=== PATIENT | male | born 1995 | race Caucasian/White ===

== ENCOUNTER 2019-06-15 11:56 | Emergency (ER) | payer OTHER ==
[~2019-06-15] VITALS: Ht 175.3 cm; Wt 94.3 kg
[2019-06-15] MEDS ORDERED: CLEO300C2 PO (15:22)
[2019-06-15 15:29] VITALS: BP 134/74
[2019-06-15] MEDS ORDERED: CLINDAMYCIN 150 MG CAP PO ONE (15:30)
== END 2019-06-15 15:35 | disposition home or self-care (01) ==
LOC: M ED 11:56
DX: L02.01 Cutaneous abscess of face (principal); B96.89 Other specified bacterial agents as the cause of diseases classified elsewhere